=== PATIENT | female | born 1980 | race Asian ===

== ENCOUNTER 2016-12-22 17:21 | Emergency (ER) | payer OTHER ==
[~2016-12-22] VITALS: Ht 152.4 cm; Wt 59.0 kg
[~2016-12-22 17:21] MED LIST: CLON1TAB3 PO; DICY20TA59 PO; ESCI20TA PO; FIORICET PO; HYDR-902 PO; LEVE500T8 PO; METH500T8 PO; ONDA4TAB14 PO; ONDA4TAB8 PO; OXYC-209 PO; TRAZ150T65 PO
[2016-12-22 17:22] VITALS: Ht 152.4 cm; Wt 59.0 kg
[2016-12-22] MEDS ORDERED: SOD CHLORIDE 0.9% 1,000 ML IV STA (17:43)
[2016-12-22] MEDS ORDERED: ONDANSETRON 4 MG INJ IV STA (17:43)
[2016-12-22] MEDS ORDERED: HYDROmorphONE 1 MG/ML SYG IV STA ×2 (17:43→20:24)
[2016-12-22] MEDS ORDERED: LUBI8CAP4 PO (17:58)
[2016-12-22] MEDS ORDERED: METO10TA92 PO (17:58)
[2016-12-22] MEDS ORDERED: LEVE-5 PO (17:59)
[2016-12-22] MEDS ORDERED: TRAZ150T65 PO (18:01)
[2016-12-22] MEDS ORDERED: OXYC-279 PO (18:02)
[2016-12-22] MEDS ORDERED: METH500T8 PO (18:04)
[2016-12-22 18:25] LABS: ADD SCAN DIFF NO
[2016-12-22 18:27] LABS: BASOPHILS % 0.4 % (0.0-2.0); EOSINOPHILS # 0.4 10^3/ul (0.0-0.5); EOSINOPHILS % 5.5 % (0.0-7.0); HEMATOCRIT 31.4 % (37.0-47.0); HEMOGLOBIN 10.3 g/dl (12.0-16.0); LYMPHOCYTES # 2.4 10^3/ul (0.8-2.9); LYMPHOCYTES % 30.6 % (15.0-51.0); MEAN CORPUSCULAR HEMOGLOBIN 31.5 pg (29.0-33.0); MEAN CORPUSCULAR HGB CONC 32.8 g/dl (32.0-37.0); MEAN PLATELET VOLUME 9.8 fl (7.4-10.4); MONOCYTE # 0.7 10^3/ul (0.3-0.9); MONOCYTES % 8.5 % (0.0-11.0); NEUTROPHIL # 4.2 10^3/ul (1.6-7.5); NEUTROPHILS % 54.9 % (39.0-77.0); PLATELET COUNT 333 10^3/UL (140-415); RED BLOOD COUNT 3.27 10^6/ul (4.20-5.40); RED CELL DISTRIBUTION WIDTH 12.2 % (11.5-14.5); WHITE BLOOD COUNT 7.7 10^3/ul (4.8-10.8)
[2016-12-22 18:38] LABS: ALBUMIN 3.7 g/dl (3.3-4.9)
[2016-12-22 18:39] LABS: POTASSIUM 3.6 mmol/L (3.5-5.1)
[2016-12-22 18:41] LABS: ALBUMIN/GLOBULIN RATIO 0.97; BILIRUBIN,INDIRECT 0.2 mg/dl (0-1.1); BILIRUBIN,TOTAL 0.2 mg/dl (0.2-1.3); CREATININE 0.75 mg/dl (0.44-1.00); TOTAL PROTEIN 7.5 g/dl (6.1-8.1)
[2016-12-22 18:42] LABS: CALCIUM 8.6 mg/dl (8.4-10.2)
[2016-12-22 20:31] VITALS: BP 105/62; PULSE 72; RESP 16; TEMP 98.3
--- NOTE | 2016-12-22 20:40 | RADRPT ---
PROCEDURE: CT Abdomen and Pelvis without contrast CLINICAL INDICATION: Abdominal pain TECHNIQUE: Transaxial images were obtained through the abdomen and pelvis on a multi-slice scanner without the intravenous contrast administration. No oral contrast had previously been given. Sagit keith and coronal re-formations were subsequently reconstructed. One or more of the following dose reduction techniques were used: - Automated exposure control. - Adjustment of the mA and/or kV according to patient size. - Use of iterative reconstruction technique. Radiation dose: CTDIvol = 8.15 mGy; DLP = 440.38 mGy-cm. COMPARISON: 12/03/2015 FINDINGS: Lung bases: The visualized lung bases appear unremarkable. Liver: The liver are is enlarged but no focal lesion is identified. Gallbladder: Surgical palomo are seen in the gallbladder fossa. Bile ducts: The common bile duct is dilated to 10 mm at the head of the pancreas. Pancreas: Appears normal with no mass or inflammation evident. Spleen: Normal in size with no focal lesion. Adrenals: Normal with no mass identified. Kidneys, ureters and bladder: The kidneys are normal in size and there is no mass, pathological calc ification, or hydronephrosis evident. There is no perinephric stranding. The ureters are normal in c aliber and no ureteroliths are identified. The bladder appears unremarkable. Reproductive organs: The uterus is absent. No adnexal mass is evident. Stomach and bowel: The stomach is moderately distended with food debris. And anastomotic palomo ar e seen in the rectal region. There is no evidence of bowel obstruction or inflammation. Appendix: The vermiform appendix is not discretely identified. Peritoneum: No free intraperitoneal fluid or air is identified. Aorta: Normal in caliber with no aneurysmal dilatation. IVC: Unremarkable. Lymph nodes: A 4.4 mm calcification is again seen anterior to the right psoas muscle which on the pr evious study with from the ureteral stent and therefore most likely represents a calcified node rather than a ureterolith. Osseous structures: The osseous elements appear intact. IMPRESSION: 1. There is again evidence of previous bowel resection without evidence of bowel obstruction or inf lammation. The vermiform appendix is not discretely identified. 2. Status post cholecystectomy, unchanged. The common bile duct now has become dilated to 10 mm at the head of the pancreas. No choledocholith or pancreatic pathology is evident. Laboratory correla tion is indicated. 3. Interval removal of the double-J right ureteral stent. There is no hydronephrosis or ureteral d ilatation. The bladder appears unremarkable. 4. A 4.3 mm calcification is seen anterior to the right psoas muscle had previously was seen to be separate from the ureteral stent and therefore more likely representing a phlebolith or a calcified node rather than a ureterolith. 5. There is again evidence of a previous hysterectomy. 6. Persistent hepatomegaly with no focal lesion. Physician Day Date Time Electronically viewed and signed by Grace Capps Physician on 12/22/2016 20:39 /
--- NOTE | 2016-12-22 21:50 | ERD ---
ER Documentation Chief Complaint Date/Time DATE: 12/22/16 TIME: 21:49 Chief Complaint ap x 3 days HPI Patient is a 36-year-old female with kidney stone and previous colon rupture with surgery who presents with abdominal pain. She also has nausea and vomiting. She complains of rectal bleeding. She says it feels different than the previous kidney stone. She has had pain for the past 3 days. She did see her pain management doctor today. Her primary doctor is Dr. Nath. ROS All systems reviewed and are negative except as per history of present illness. Medications Home Meds Reported Medications Methocarbamol* (Methocarbamol*) 500 Mg Tablet, 500 MG PO BID, TAB 12/22/16 Oxycodone HCl/Acetaminophen (Percocet 5-325 mg Tablet) 1 Each Tablet, 1 EACH PO TID, TAB 12/22/16 Trazodone Hcl* (Trazodone Hcl*) 150 Mg Tablet, 75 MG PO QHS, #30 TAB 12/22/16 Levetiracetam* (Keppra*) 500 Mg Tablet, 500 MG PO BID, TAB 12/22/16 Lubiprostone* (Amitiza*) Unknown Strength Capsule, MCG PO DAILY, #60 CAP 12/22/16 Metoclopramide* (Reglan*) 10 Mg Tablet, 10 MG PO TID, TAB 12/22/16 Escitalopram Oxalate* (Lexapro*) 20 Mg Tablet, 20 MG PO DAILY, #30 TAB 08/18/16 Clonazepam* (Clonazepam*) 1 Mg Tablet, 1 MG PO BID Y for ANXIETY, TAB 08/18/16 Dicyclomine Hcl* (Bentyl*) 20 Mg Tablet, 20 MG PO TID, TAB 08/18/16 Ondansetron Hcl* (Zofran*) 4 Mg Tablet, 4 MG PO Q6H Y for NAUSEA AND OR VOMITING , TAB 04/30/15 Discontinued Reported Medications Trazodone Hcl* (Trazodone Hcl*) 150 Mg Tablet, 150 MG PO QHS, #30 TAB 08/18/16 Oxycodone HCl/Acetaminophen (Percocet 10-325 mg Tablet) 1 Each Tablet, 1 EACH PO TID, TAB 08/18/16 Levetiracetam* (Levetiracetam*) 500 Mg Tablet, 500 MG PO BID, TAB 08/18/16 Methocarbamol* (Methocarbamol*) 500 Mg Tablet, 500 MG PO BID Y for MUSCLE SPASMS , TAB 08/18/16 Discontinued Scripts Ondansetron (Ondansetron Odt) 4 Mg Tab.rapdis, 4 MG PO Q6H Y for NAUSEA AND/OR VOMITING, #30 TAB Prov:ZHAO NELSON MD 08/18/16 Hydrocodone/Acetaminophen ([place] 10-325 Tablet) 1 Each Tablet, 1 TAB PO Q6H Y for PAIN, #12 TAB Prov:ZHAO NELSON MD 08/18/16 Acetamin/Butalbital/Caffeine* (Fioricet*) [id number] Tab, 1 TAB PO Q6H Y for PAIN, #30 TAB Prov:ZHAO NELSON MD 08/18/16 Allergies Allergies: Coded Allergies: No Known Allergy (Unverified , 12/22/16) PMhx/Soc History of Surgery: Yes (HYSTERECTOMY,COLOSTOMY) Anesthesia Reaction: No Hx Neurological Disorder: No Hx Respiratory Disorders: Yes (ASTHMA) Hx Cardiac Disorders: No Hx Psychiatric Problems: No Hx Miscellaneous Medical Probl: Yes (anxiety,OVARIAN CA) Hx Alcohol Use: Yes (socially) Hx Substance Use: Yes (MARIJUANA) Hx Tobacco Use: Yes Smoking Status: Current every day smoker FmHx Family History: diabetes Physical Exam Vitals Vital Signs Date Time Temp Pulse Resp B/P Pulse Ox O2 Delivery O2 Flow Rate FiO2 12/22/16 20:31 98.3 72 16 105/62 99 Room Air 12/22/16 17:22 97.2 87 20 101/59 99 Physical Exam Const: Mild distress secondary to pain Head: Atraumatic Eyes: Normal Conjunctiva ENT: Normal External Ears, Nose and Mouth. Neck: Full range of motion..~ No meningismus. Resp: Clear to auscultation bilaterally Cardio: Regular rate and rhythm, no murmurs Abd: Soft, diffuse abdominal pain without rebound or guarding Skin: No petechiae or rashes Back: No midline or flank tenderness Ext: No cyanosis, or edema Neur: Awake and alert Psych: Normal Mood and Affect Result Diagram: 12/22/16180912/22/161809 Results 24 hrs Laboratory Tests Test 12/22/16 18:10 White Blood Count 7.710^3/ul Red Blood Count 3.2710^6/ul Hemoglobin 10.3g/dl Hematocrit 31.4% Mean Corpuscular Volume 96.0fl Mean Corpuscular Hemoglobin 31.5pg Mean Corpuscular Hemoglobin Concent 32.8g/dl Red Cell Distribution Width 12.2% Platelet Count 15424^3/UL Mean Platelet Volume 9.8fl Neutrophils % 54.9% Lymphocytes % 30.6% Monocytes % 8.5% Eosinophils % 5.5% Basophils % 0.4% Nucleated Red Blood Cells % 0.0/100WBC Neutrophils # 4.210^3/ul Lymphocytes # 2.410^3/ul Monocytes # 0.710^3/ul Eosinophils # 0.410^3/ul Basophils # 0.010^3/ul Nucleated Red Blood Cells # 0.010^3/ul Sodium Level 141mmol/L Potassium Level 3.6mmol/L Chloride Level 105mmol/L Carbon Dioxide Level 25mmol/L Anion Gap 15 Blood Urea Nitrogen 11mg/dl Creatinine 0.75mg/dl Glucose Level 101mg/dl Calcium Level 8.6mg/dl Total Bilirubin 0.2mg/dl Direct Bilirubin 0.00mg/dl Indirect Bilirubin 0.2mg/dl Aspartate Amino Transf (AST/SGOT) 16IU/L Alanine Aminotransferase (ALT/SGPT) 14IU/L Alkaline Phosphatase 68IU/L Total Protein 7.5g/dl Albumin 3.7g/dl Globulin 3.80g/dl Albumin/Globulin Ratio 0.97 Lipase 137U/L Current Medications Medications (Trade) Dose Ordered Sig/Cheryl Route PRN Reason Start Time Stop Time Status Last Admin Dose Admin Sodium Chloride (NS) 1,000 ml @ 1,000 mls/hr Q1H STAT IV 12/22/16 17:43 12/22/16 18:42 DC 12/22/16 18:14 Hydromorphone HCl (Dilaudid) 1 mg ONCE STAT IV 12/22/16 17:43 12/22/16 17:44 DC 12/22/16 18:14 Ondansetron HCl (Zofran Inj) 4 mg ONCE STAT IV 12/22/16 17:43 12/22/16 17:44 DC 12/22/16 18:14 Hydromorphone HCl (Dilaudid) 1 mg ONCE STAT IV 12/22/16 20:24 12/22/16 20:25 DC 12/22/16 20:27 Procedures/MDM CT shows no acute process per radiology. Smoking Cessation Therapy: Pt. was lectured for greater than 3 minutes on the health risks of continued smoking and the benefits of cessation. Patient is a 36-year-old female who presents with abdominal pain and vomiting. The patient also has rectal bleeding. Her hemoglobin is 10 and she does not require transfusion at this time. Other laboratory studies are basically normal. CT scan showed no signs of obstruction. At this point I doubt appendicitis, cholestatic, pink otitis, or bowel obstruction. I believe outpatient management is appropriate. She can return for any worsening symptoms. Departure Diagnosis: Primary Impression: Abdominal pain Abdominal location: generalized Qualified Code: R10.84 - Generalized abdominal pain Condition: Fair Patient Instructions: Abdominal Pain Referrals: OSCAR NATH MD (PCP) Additional Instructions: FOLLOW UP WITH YOUR PRIMARY CARE PHYSICIAN TOMORROW.Return to this facility if you are not improving as expected. KAYLEEN PEPE MD Dec 22, 2016 21:50
== END 2016-12-22 21:03 | disposition home or self-care (01) ==
LOC: E/R 17:21
DX: R10.84 Generalized abdominal pain (principal); R11.2 Nausea with vomiting, unspecified; J45.909 Unspecified asthma, uncomplicated; F17.210 Nicotine dependence, cigarettes, uncomplicated; Z85.43 Personal history of malignant neoplasm of ovary
CPT/HCPCS: 74176; 80053; 83690; 85025; J1170; J2405; J7030; 36415; 96374; 96375; 96376

== ENCOUNTER 2017-01-10 18:16 | Emergency (ER) | payer OTHER ==
[~2017-01-10] VITALS: Ht 160 cm; Wt 62.0 kg
[~2017-01-10 18:16] MED LIST changes: -FIORICET PO; -HYDR-902 PO; +LEVE-5 PO; -LEVE500T8 PO; +LUBI8CAP4 PO; +METO10TA92 PO; -ONDA4TAB14 PO; -OXYC-209 PO; +OXYC-279 PO
[2017-01-10 18:23] VITALS: Ht 160 cm; Wt 62.0 kg
[2017-01-10] MEDS ORDERED: SOD CHLORIDE 0.9% 1,000 ML IV STA (19:59)
[2017-01-10] MEDS ORDERED: ONDANSETRON 4 MG INJ IV STA (19:59)
[2017-01-10] MEDS ORDERED: HYDROmorphONE 1 MG/ML SYG IV STA ×2 (19:59→21:13)
[2017-01-10 20:21] LABS: ADD SCAN DIFF NO
[2017-01-10 20:22] LABS: BASOPHILS % 0.5 % (0.0-2.0); EOSINOPHILS # 0.6 10^3/ul (0.0-0.5); EOSINOPHILS % 6.7 % (0.0-7.0); HEMATOCRIT 35.1 % (37.0-47.0); HEMOGLOBIN 11.5 g/dl (12.0-16.0); LYMPHOCYTES # 2.8 10^3/ul (0.8-2.9); LYMPHOCYTES % 33.1 % (15.0-51.0); MEAN CORPUSCULAR HEMOGLOBIN 30.7 pg (29.0-33.0); MEAN CORPUSCULAR HGB CONC 32.8 g/dl (32.0-37.0); MEAN CORPUSCULAR VOLUME 93.6 fl (82.0-101.0); MEAN PLATELET VOLUME 9.5 fl (7.4-10.4); MONOCYTE # 0.7 10^3/ul (0.3-0.9); MONOCYTES % 8.8 % (0.0-11.0); NEUTROPHIL # 4.2 10^3/ul (1.6-7.5); NEUTROPHILS % 50.5 % (39.0-77.0); PLATELET COUNT 333 10^3/UL (140-415); RED BLOOD COUNT 3.75 10^6/ul (4.20-5.40); RED CELL DISTRIBUTION WIDTH 12.2 % (11.5-14.5); WHITE BLOOD COUNT 8.3 10^3/ul (4.8-10.8)
[2017-01-10 20:29] LABS: ADD UMIC NO; URINE BILIRUBIN (Dip) NEGATIVE (NEGATIVE); URINE BLOOD (Dip) NEGATIVE (NEGATIVE); URINE COLOR LT. YELLOW (YELLOW); URINE GLUCOSE (Dip) NEGATIVE (NEGATIVE); URINE KETONES (Dip) NEGATIVE (NEGATIVE); URINE LEUKOCYTE ESTERASE (Dip) NEGATIVE (NEGATIVE); URINE NITRITE (Dip) NEGATIVE (NEGATIVE); URINE TOTAL PROTEIN (Dip) NEGATIVE (NEGATIVE); URINE UROBILINOGEN (Dip) 0.2 E.U./dL (0.1-1.0)
[2017-01-10 20:31] LABS: ALBUMIN 4.3 g/dl (3.3-4.9)
[2017-01-10 20:32] LABS: POTASSIUM 3.4 mmol/L (3.5-5.1)
[2017-01-10 20:34] LABS: BILIRUBIN,INDIRECT 0.2 mg/dl (0-1.1); BILIRUBIN,TOTAL 0.2 mg/dl (0.2-1.3); CREATININE 0.8 mg/dl (0.44-1.00)
[2017-01-10 20:35] LABS: ALBUMIN/GLOBULIN RATIO 1.1; CALCIUM 9.2 mg/dl (8.4-10.2); TOTAL PROTEIN 8.2 g/dl (6.1-8.1)
--- NOTE | 2017-01-10 21:41 | ERD ---
ER Documentation Chief Complaint Date/Time DATE: 01/10/17 TIME: 21:35 Chief Complaint lower abd pain x 1 week, constipation x 1 week rectal bleeding x 3 days HPI This a 36-year-old female who presents to the emergency department today complaining of lower abdominal pain, constipation and some rectal bleeding. Patient states that she has had these symptoms in the past. States that she was seen here in the emergency department previously and really had no improvement or change in symptoms after last being seen. States that she has had multiple surgeries on her abdomen and does see a pain management doctor as well as a GI specialist. States she has recently been changed from Amitiza to Linzess 2 days ago. States she was recently placed on 8 mg of morphine at night in addition to her Percocet that she takes during the day. States that this pain is the same pain that she usually has however it is now worse. States that she also has had nausea and vomiting for which she takes Zofran and Reglan and took Reglan approximately 1 hour prior to arrival. States that she is waiting to get a scope but she is unable to get one until February. Denies any fevers or chills. ROS All systems reviewed and are negative except as per history of present illness. Medications Home Meds Reported Medications Methocarbamol* (Methocarbamol*) 500 Mg Tablet, 500 MG PO BID, TAB 12/22/16 Oxycodone HCl/Acetaminophen (Percocet 5-325 mg Tablet) 1 Each Tablet, 1 EACH PO TID, TAB 12/22/16 Trazodone Hcl* (Trazodone Hcl*) 150 Mg Tablet, 75 MG PO QHS, #30 TAB 12/22/16 Levetiracetam* (Keppra*) 500 Mg Tablet, 500 MG PO BID, TAB 12/22/16 Lubiprostone* (Amitiza*) Unknown Strength Capsule, MCG PO DAILY, #60 CAP 12/22/16 Metoclopramide* (Reglan*) 10 Mg Tablet, 10 MG PO TID, TAB 12/22/16 Escitalopram Oxalate* (Lexapro*) 20 Mg Tablet, 20 MG PO DAILY, #30 TAB 08/18/16 Clonazepam* (Clonazepam*) 1 Mg Tablet, 1 MG PO BID Y for ANXIETY, TAB 08/18/16 Dicyclomine Hcl* (Bentyl*) 20 Mg Tablet, 20 MG PO TID, TAB 08/18/16 Ondansetron Hcl* (Zofran*) 4 Mg Tablet, 4 MG PO Q6H Y for NAUSEA AND OR VOMITING , TAB 04/30/15 Allergies Allergies: Coded Allergies: No Known Allergy (Unverified , 12/22/16) PMhx/Soc History of Surgery: Yes (HYSTERECTOMY,COLOSTOMY, colon resection.) Anesthesia Reaction: No Hx Neurological Disorder: No Hx Respiratory Disorders: Yes (ASTHMA) Hx Cardiac Disorders: No Hx Psychiatric Problems: No Hx Miscellaneous Medical Probl: Yes (anxiety,OVARIAN CA) Hx Alcohol Use: Yes (socially) Hx Substance Use: Yes (MARIJUANA) Hx Tobacco Use: Yes Smoking Status: Current every day smoker Physical Exam Vitals Vital Signs Date Time Temp Pulse Resp B/P Pulse Ox O2 Delivery O2 Flow Rate FiO2 01/10/17 21:49 61 17 130/60 99 Room Air 01/10/17 18:23 97.2 84 20 125/81 98 Physical Exam Const: No acute distress Head: Atraumatic Eyes: Normal Conjunctiva ENT: Normal External Ears, Nose and Mouth. Neck: Full range of motion..~ No meningismus. Resp: Clear to auscultation bilaterally Cardio: Regular rate and rhythm, no murmurs Abd: Soft, diffuse lower abdominal pain non distended. Normal bowel sounds. No epigastric pain or right upper quadrant pain. Skin: No petechiae or rashes Back: No midline or flank tenderness Ext: No cyanosis, or edema Neur: Awake and alert Psych: Normal Mood and Affect Result Diagram: 01/10/17201101/10/172011 Results 24 hrs Laboratory Tests Test 01/10/17 20:12 White Blood Count 8.310^3/ul Red Blood Count 3.7510^6/ul Hemoglobin 11.5g/dl Hematocrit 35.1% Mean Corpuscular Volume 93.6fl Mean Corpuscular Hemoglobin 30.7pg Mean Corpuscular Hemoglobin Concent 32.8g/dl Red Cell Distribution Width 12.2% Platelet Count 34453^3/UL Mean Platelet Volume 9.5fl Neutrophils % 50.5% Lymphocytes % 33.1% Monocytes % 8.8% Eosinophils % 6.7% Basophils % 0.5% Nucleated Red Blood Cells % 0.0/100WBC Neutrophils # 4.210^3/ul Lymphocytes # 2.810^3/ul Monocytes # 0.710^3/ul Eosinophils # 0.610^3/ul Basophils # 0.010^3/ul Nucleated Red Blood Cells # 0.010^3/ul Urine Color LT. YELLOW Urine Clarity CLEAR Urine pH 6.0 Urine Specific [place] 1.010 Urine Ketones NEGATIVE Urine Nitrite NEGATIVE Urine Bilirubin NEGATIVE Urine Urobilinogen 0.2 E.U./dL Urine Leukocyte Esterase NEGATIVE Urine Hemoglobin NEGATIVE Urine Glucose NEGATIVE% Urine Total Protein NEGATIVE Sodium Level 139mmol/L Potassium Level 3.4mmol/L Chloride Level 103mmol/L Carbon Dioxide Level 25mmol/L Anion Gap 14 Blood Urea Nitrogen 15mg/dl Creatinine 0.80mg/dl Glucose Level 91mg/dl Calcium Level 9.2mg/dl Total Bilirubin 0.2mg/dl Direct Bilirubin 0.00mg/dl Indirect Bilirubin 0.2mg/dl Aspartate Amino Transf (AST/SGOT) 25IU/L Alanine Aminotransferase (ALT/SGPT) 33IU/L Alkaline Phosphatase 90IU/L Total Protein 8.2g/dl Albumin 4.3g/dl Globulin 3.90g/dl Albumin/Globulin Ratio 1.10 Lipase 107U/L Current Medications Medications (Trade) Dose Ordered Sig/Cheryl Route PRN Reason Start Time Stop Time Status Last Admin Dose Admin Sodium Chloride (NS) 1,000 ml @ 1,000 mls/hr Q1H STAT IV 01/10/17 19:59 01/10/17 20:58 DC 01/10/17 20:16 Hydromorphone HCl (Dilaudid) 1 mg ONCE STAT IV 01/10/17 19:59 01/10/17 20:01 DC 01/10/17 20:17 Ondansetron HCl (Zofran Inj) 4 mg ONCE STAT IV 01/10/17 19:59 01/10/17 20:01 DC 01/10/17 20:16 Hydromorphone HCl (Dilaudid) 1 mg ONCE STAT IV 01/10/17 21:13 01/10/17 21:14 DC 01/10/17 21:49 Procedures/MDM This a 36-year-old female who presents to the emergency department today complaining of lower abdominal pain, constipation and some rectal bleeding. Patient does have a complex medical history and upon review of medical records it appears that patient had a hysterectomy after being diagnosed with ovarian cancer and had intra-operative complications during that time and ended up having to have a colectomy and colonoscopy done. Patient had indicated that she has had approximately 18 surgeries. Patient had indicated that her symptoms were the same as they were on her last visit and nothing has changed and now her fact her pain is now worse. Patient was seen here in the emergency department on December 22, 2016 and had a full abdominal workup done at that time. Given that patient symptoms are remaining the same and she has previously had a CT scan a couple of weeks ago I did not repeat imaging after discussing the patient with Dr. Larry. The decision was made to recheck patient's laboratory work. Laboratory work shows no elevated white blood cell count. Patient's hemoglobin is very mildly decreased at 11.5. Patient's hemoglobin is mildly increased from previous visit. Patient's platelets are within normal limits. Her electrolyte are within normal limits. Liver function is within normal limits. Glucose within normal limits. Bilirubin is within normal limits. Lipase is within normal limits. UA is negative for infection Patient was given Dilaudid, Zofran, IV fluids here in the emergency department. Patient continued to complain of pain stating that her pain was worse". She was given a another milligram of Dilaudid. I went to check on the patient's pain and she had left the recliner with an IV in place. I notified nursing staff immediately. Nursing staff called the patient and per the patient patient indicated that she left because she was "feeling anxious". Patient indicated that she had left the IV in the bathroom. Patient then changed her story and stated that it was in her bathroom. They notify the patient that they were going to be calling police to have them dispatched to her house and patient then called back stating that we did not have her correct address on file. Patient eloped with an IV. Patient symptoms at this time is consistent with abdominal pain and constipation that is chronic. Departure Diagnosis: Primary Impression: Abdominal pain Abdominal location: lower abdomen, unspecified Qualified Code: R10.30 - Lower abdominal pain Condition: EDINSON Clayton PA-C January 10, 2017 21:41
[2017-01-10 21:49] VITALS: BP 130/60; PULSE 61; RESP 17
== END 2017-01-10 22:22 | disposition left against medical advice (07) ==
LOC: FTE 18:16
DX: R10.30 Lower abdominal pain, unspecified (principal); R11.2 Nausea with vomiting, unspecified; J45.909 Unspecified asthma, uncomplicated; F17.210 Nicotine dependence, cigarettes, uncomplicated; Z85.43 Personal history of malignant neoplasm of ovary
CPT/HCPCS: 80053; 81003; 83690; 85025; J1170; J2405; J7030; 36415; 96374; 96375; 96376

== ENCOUNTER 2017-09-26 10:47 | Emergency (ER) | END 2017-09-26 16:45 | disposition home or self-care (01) ==